=== PATIENT | male | born 1940 | race Asian ===

== ENCOUNTER 2018-02-22 14:52 | Outpatient (CLI) | payer OTHER ==
[2018-02-22 15:20] LABS: PLATELET COUNT 108 K/uL (142-355)
[2018-02-22 15:48] LABS: POTASSIUM 4.1 mmol/L (3.6-5.2)
== END 2018-02-22 19:26 | disposition home or self-care (01) ==
LOC: LABW 14:52
PROVIDERS: Nurse Practitioner Family
DX: Z79.899 Other long term (current) drug therapy (principal); E11.9 Type 2 diabetes mellitus without complications; R97.20 Elevated prostate specific antigen [PSA]; R53.83 Other fatigue; N18.9 Chronic kidney disease, unspecified; E78.5 Hyperlipidemia, unspecified; D64.9 Anemia, unspecified
CPT/HCPCS: 36415; 80053; 80061; 83036; 84153; 84443; 85027

== ENCOUNTER 2019-01-17 18:52 | Emergency (ER) | payer OTHER ==
[~2019-01-17] VITALS: Ht 175.3 cm; Wt 94.8 kg
[2019-01-17] MEDS ORDERED: LISI20TA11 PO (19:17)
[2019-01-17] MEDS ORDERED: SIMV10TA PO (19:18)
[2019-01-17] MEDS ORDERED: SPIRONOLACT50 MG PO (19:19)
[2019-01-17] MEDS ORDERED: LABETALOL200 MG PO (19:19)
[2019-01-17] MEDS ORDERED: FURO40TA93 PO (19:20)
[2019-01-17] MEDS ORDERED: ALLO300T23 PO (19:20)
[2019-01-17] MEDS ORDERED: HUMULIN 70/30 K1 INJ SC (19:22)
[2019-01-17 20:19] LABS: PLATELET COUNT 80 K/uL (142-355)
[2019-01-17 20:51] LABS: POTASSIUM 6.3 mmol/L (3.6-5.2)
[2019-01-17 22:32] VITALS: BP 143/82; TEMP 98
== END 2019-01-17 22:32 | disposition short-term general hospital (02) ==
LOC: ED 18:52
PROVIDERS: Emergency Medicine
DX: N19 Unspecified kidney failure (principal); E86.0 Dehydration; E87.5 Hyperkalemia; R00.1 Bradycardia, unspecified; I45.19 Other right bundle-branch block; R53.1 Weakness; Z79.899 Other long term (current) drug therapy
CPT/HCPCS: 36415; 80053; 81000; 82150; 82550; 83690; 84484; 85027; 87086; 87088; 93005; 94664; 96365; 96375; 99284; J0610; J1815; J7060

== ENCOUNTER 2019-02-04 18:09 | Outpatient (CLI) | payer OTHER ==
[~2019-02-04 18:09] MED LIST: ALLO300T23 PO; FURO40TA93 PO; HUMULIN 70/30 K1 INJ SC; LABETALOL200 MG PO; LISI20TA11 PO; SIMV10TA PO; SPIRONOLACT50 MG PO
== END 2019-02-04 18:12 | disposition short-term general hospital (02) ==
LOC: AMB 18:09
DX: R53.1 Weakness (principal)
CPT/HCPCS: A0425; A0427

== ENCOUNTER 2019-02-04 18:17 | Emergency (ER) | payer OTHER ==
[~2019-02-04] VITALS: Ht 175.3 cm; Wt 105.2 kg
[2019-02-04 20:21] LABS: PLATELET COUNT 127 K/uL (142-355)
[2019-02-04 20:37] LABS: POTASSIUM 4.9 mmol/L (3.6-5.2)
[2019-02-04 20:51] LABS: PARTIAL THROMBOPLASTIN TIME 25.6 SECONDS (24.5-33.6)
[2019-02-04 22:32] VITALS: BP 147/98; TEMP 98.1
== END 2019-02-04 22:32 | disposition home or self-care (01) ==
LOC: ED 18:17
PROVIDERS: Family Medicine
DX: N28.9 Disorder of kidney and ureter, unspecified (principal); R55 Syncope and collapse
CPT/HCPCS: 36415; 80053; 81000; 85027; 85610; 85730; 99283

== ENCOUNTER 2019-02-07 17:27 | Outpatient (CLI) | payer OTHER ==
[2019-02-07 18:04] LABS: PLATELET COUNT 127 K/uL (142-355)
[2019-02-07 18:19] LABS: POTASSIUM 5.1 mmol/L (3.6-5.2)
== END 2019-02-07 19:38 | disposition home or self-care (01) ==
LOC: LABW 17:27
PROVIDERS: Nurse Practitioner Family
DX: N18.4 Chronic kidney disease, stage 4 (severe) (principal); E11.9 Type 2 diabetes mellitus without complications; Z51.81 Encounter for therapeutic drug level monitoring; M10.9 Gout, unspecified; D51.8 Other vitamin B12 deficiency anemias; N39.0 Urinary tract infection, site not specified
CPT/HCPCS: 36415; 80048; 81000; 82607; 83036; 84550; 85027

== ENCOUNTER 2019-07-27 14:39 | Inpatient (IN) | payer OTHER ==
[~2019-07-27] VITALS: Ht 175.3 cm; Wt 114.9 kg
[2019-07-27 15:57] LABS: PLATELET COUNT 83 K/uL (142-355)
[2019-07-27 16:12] VITALS: BP 157/103; TEMP 101.3
[2019-07-27 16:12] LABS: POTASSIUM 5.8 mmol/L (3.6-5.2)
[2019-07-27 16:31] VITALS: TEMP 100.1
[2019-07-27 21:20] VITALS: TEMP 98.4
[2019-07-28] MEDS ORDERED: TAMS0.4C PO (00:47)
[2019-07-28] MEDS ORDERED: TRAM50TA PO (00:48)
[2019-07-28] MEDS ORDERED: VIT C/BIOFLV1000 MG PO (00:51)
[2019-07-28 01:29] VITALS: BP 161/77; TEMP 98.7; Ht 175.3 cm; Wt 114.9 kg
[2019-07-28 04:00] VITALS: BP 152/71; TEMP 98.3
[2019-07-28 08:00] VITALS: BP 146/75; TEMP 97.4
[2019-07-28 12:00] VITALS: BP 140/72; TEMP 98.7
[2019-07-28 16:00] VITALS: BP 131/72; TEMP 97.9
[2019-07-28 19:58] VITALS: BP 144/74; TEMP 98.8
[2019-07-29 00:01] VITALS: BP 115/58; TEMP 98.8
[2019-07-29 03:53] VITALS: BP 114/58; TEMP 98.6
[2019-07-29 05:10] LABS: PLATELET COUNT 80 K/uL (142-355)
[2019-07-29 08:00] VITALS: BP 142/77; TEMP 98.6
[2019-07-29 12:00] VITALS: BP 124/63; TEMP 99.2
[2019-07-29 16:00] VITALS: BP 149/81; TEMP 98.6
[2019-07-29 20:00] VITALS: BP 144/77; TEMP 98
[2019-07-30] VITALS: BP 125/60; TEMP 98.9
[2019-07-30 04:00] VITALS: BP 141/79; TEMP 97.7
[2019-07-30 05:27] LABS: PLATELET COUNT 87 K/uL (142-355)
[2019-07-30 05:41] LABS: POTASSIUM 5.7 mmol/L (3.6-5.2)
[2019-07-30 08:06] VITALS: BP 142/78; TEMP 97.7
[2019-07-30 12:00] VITALS: BP 141/91; TEMP 97.7
[2019-07-30 16:05] VITALS: BP 131/7; TEMP 97.8
[2019-07-30 20:00] VITALS: BP 160/81; TEMP 98.7
[2019-07-31] VITALS: BP 146/68; TEMP 97.6
[2019-07-31 04:00] VITALS: BP 154/71; TEMP 98.8
[2019-07-31 05:51] LABS: PLATELET COUNT 91 K/uL (142-355)
[2019-07-31 05:52] LABS: POTASSIUM 5.4 mmol/L (3.6-5.2)
[2019-07-31 08:04] VITALS: BP 138/68; TEMP 97.7
[2019-07-31 12:36] VITALS: BP 159/76; TEMP 98.1
[2019-07-31 16:29] VITALS: BP 180/89; TEMP 98.2
[2019-07-31 20:00] VITALS: BP 165/78; TEMP 98.3
[2019-08-01] VITALS: BP 154/59; TEMP 97.6
[2019-08-01 04:00] VITALS: BP 158/63; TEMP 98.6
[2019-08-01 06:04] LABS: PLATELET COUNT 172 K/uL (142-355)
[2019-08-01 06:41] LABS: POTASSIUM 5.1 mmol/L (3.6-5.2)
[2019-08-01 08:00] VITALS: BP 159/77; TEMP 98
[2019-08-01 12:00] VITALS: BP 161/76; TEMP 97.8
[2019-08-01 16:00] VITALS: BP 155/99; TEMP 98.3
[2019-08-01 20:00] VITALS: BP 144/70; TEMP 98.7
[2019-08-02] VITALS: BP 137/70; TEMP 97.7
[2019-08-02 04:00] VITALS: BP 155/81; TEMP 98
[2019-08-02 06:28] LABS: PLATELET COUNT 90 K/uL (142-355)
[2019-08-02 06:32] LABS: POTASSIUM 5.2 mmol/L (3.6-5.2)
[2019-08-02 08:00] VITALS: BP 157/76; TEMP 97.1
[2019-08-02 12:00] VITALS: BP 142/71; TEMP 97.9
[2019-08-02] MEDS ORDERED: CEFD300C2 PO (12:03)
== END 2019-08-02 15:40 | disposition home or self-care (01) | DRG 202 ==
LOC: ED 14:39 → MED/SURG 20:33
PROVIDERS: Internal Medicine Endocrinology, Diabetes & Metabolism; ADMIT Emergency Medicine
DX: J20.9 Acute bronchitis, unspecified (principal); N18.4 Chronic kidney disease, stage 4 (severe); Q60.0 Renal agenesis, unilateral; I12.9 Hypertensive chronic kidney disease with stage 1 through stage 4 chronic kidney disease, or unspecified chronic kidney disease; E11.22 Type 2 diabetes mellitus with diabetic chronic kidney disease; N40.0 Benign prostatic hyperplasia without lower urinary tract symptoms; G89.4 Chronic pain syndrome; D69.6 Thrombocytopenia, unspecified; D63.8 Anemia in other chronic diseases classified elsewhere
CPT/HCPCS: 36415; 80048; 80053; 81000; 82550; 82553; 82948; 83605; 84484; 85027; 85379; 87040; 87070; 87205; 87502; 87635; 87651; 93005; 96365; 96372; 99284; J0696; J1644; J1650; J1815

== ENCOUNTER 2019-10-13 10:31 | Outpatient (CLI) | payer OTHER ==
[~2019-10-13 10:31] MED LIST changes: +CEFD300C2 PO; +TAMS0.4C PO; +TRAM50TA PO; +VIT C/BIOFLV1000 MG PO
== END 2019-10-13 22:24 | disposition home or self-care (01) ==
LOC: LABW 10:31 → LAB 10:31
PROVIDERS: Nurse Practitioner Family
DX: E11.9 Type 2 diabetes mellitus without complications (principal); D64.89 Other specified anemias; R53.83 Other fatigue; E78.49 Other hyperlipidemia; Z51.81 Encounter for therapeutic drug level monitoring; Z12.5 Encounter for screening for malignant neoplasm of prostate; R97.20 Elevated prostate specific antigen [PSA]
CPT/HCPCS: 36415; 80061; 83036; 84153; 84443